=== PATIENT | female | born 1945 | race Caucasian/White ===

== ENCOUNTER 2016-12-07 23:03 | Emergency (ER) | payer MEDICARE, MEDICAID ==
[~2016-12-07] VITALS: Ht 162.6 cm; Wt 66.2 kg
[~2016-12-07 23:03] MED LIST: LANTUS INS100 UNITS/ SUBQ; TENORMIN50 M1 PO; ZESTRIL30 MG PO
[2016-12-07 23:09] VITALS: BP 141/72
--- NOTE | 2016-12-08 01:06 | NUR ---
Patient ambulated to bed 01.
--- NOTE | 2016-12-08 01:10 | NUR ---
71 Y/O HERE C/O EPIGASTRIC PAIN X 2 DAYS, N/V AND PREFUSE SWEATING, AND CHILLS X 2 DAYS. DENIES CHEST PAIN, NO S/S OF RESP DISTESS NOTED AT THE MOMENT. ER MD NOTIFIED.
--- NOTE | 2016-12-08 01:51 | NUR ---
Dr. Rg evaluating patient at bedside.
[2016-12-08] MEDS ORDERED: BELLADONNA/PHENOBARBITAL 5 ML ORASYR PO ONE (02:00)
[2016-12-08] MEDS ORDERED: NACL 0.9% 1,000 ML IV ONE (02:00)
[2016-12-08] MEDS ORDERED: ALUMINUM HYD/MAG/SIMETHICONE 30 ML UDC PO ONE (02:00)
[2016-12-08] MEDS ORDERED: LIDOCAINE VISCOUS 2% 20 ML UDC PO ONE (02:00)
[2016-12-08] MEDS ORDERED: ONDANSETRON 4 MG/2 ML VIAL IVP ONE (02:00)
[2016-12-08 03:15] VITALS: BP 118/78
--- NOTE | 2016-12-08 03:15 | NUR ---
Patient discharged with v/s stable. Written and verbal after care instructions given and explained. Patient alert, oriented and verbalized understanding of instructions. Ambulatory with steady gait. All questions addressed prior to discharge. ID band removed. Patient advised to follow up with PMD OR RETURN TO ER IF CONDITION WORSENS. Rx of ZOFRAN, AND PRILOSEC given. Patient educated on indication of medication including possible reaction and side effects. Opportunity to ask questions provided and answered.
== END 2016-12-08 03:15 | disposition home or self-care (01) ==
LOC: MED 23:03
DX: K21.9 Gastro-esophageal reflux disease without esophagitis (principal); K52.9 Noninfective gastroenteritis and colitis, unspecified; E11.9 Type 2 diabetes mellitus without complications; I10 Essential (primary) hypertension; Z79.4 Long term (current) use of insulin
CPT/HCPCS: 36415; 80053; 81002; 82948; 83690; 85025; 96361; 96374; 99284; J2405; J7030